=== PATIENT | male | born 1985 | race African-American/Black ===

== ENCOUNTER 2022-12-22 00:15 | Emergency (ER) | payer MEDICAID, OTHER ==
[~2022-12-22] VITALS: Ht 172.7 cm; Wt 102.0 kg
[2022-12-22 02:30] VITALS: BP 146/101; PULSE 101; RESP 20; O2SAT 98
[2022-12-22] MEDS ORDERED: KETOROLAC TROMETH 60MG/2ML VIAL IM ONE (02:45)
[2022-12-22] MEDS ORDERED: DexAMETHasone SOD PHOS 10MG/1ML VIAL INJ IM ONE (02:45)
[2022-12-22] MEDS ORDERED: IBUP-1456 PO (05:13)
[2022-12-22] MEDS ORDERED: CYCL-838 PO (05:13)
== END 2022-12-22 05:23 | disposition home or self-care (01) ==
LOC: ER 00:15
DX: M54.12 Radiculopathy, cervical region (principal); M25.512 Pain in left shoulder; Z88.8 Allergy status to other drugs, medicaments and biological substances; Z88.1 Allergy status to other antibiotic agents; X50.1XXA Overexertion from prolonged static or awkward postures, initial encounter; Y93.89 Activity, other specified; Y92.89 Other specified places as the place of occurrence of the external cause; Y99.8 Other external cause status
CPT/HCPCS: 72040; 73030; 96372; 99284; J1100; J1885